=== PATIENT | female | born 1995 | race Caucasian/White ===

== ENCOUNTER 2019-05-03 12:44 | Inpatient (IN) | payer OTHER ==
[~2019-05-03] VITALS: Ht 162.6 cm; Wt 78.2 kg
[2019-05-13 21:09] VITALS: BP 117/75
[2019-05-13] MEDS ORDERED: OXYTOCIN 30U/ 0.9% NaCL 500ML 500 ML IV PRN (21:26)
[2019-05-13] MEDS ORDERED: OXYTOCIN 30U/ 0.9% NaCL 500ML 500 ML IV ONE (21:26)
[2019-05-13] MEDS ORDERED: ALUMINUM/MAG/SIMETHICONE 30 ML UDC PO PRN (21:30)
[2019-05-13] MEDS ORDERED: CALCIUM CARBONATE 500 MG TAB.CHEW PO PRN (21:30)
[2019-05-13] MEDS ORDERED: MISOPROSTOL 25 MCG TABLET VG PRN (21:30)
[2019-05-13] MEDS ORDERED: ONDANSETRON 2MG/ML, 2ML IVPush PRN (21:30)
[2019-05-13] MEDS ORDERED: TERBUTALINE 1 MG/ML, 1ML IVPush PRN (21:30)
[2019-05-13] MEDS ORDERED: SODIUM CITRATE/CITRIC ACID 15 ML UDC PO PRN (21:30)
[2019-05-13] MEDS ORDERED: METOCLOPRAMIDE 5 MG/ML, 2ML IVPush PRN (21:30)
[2019-05-13] MEDS ORDERED: FENTANYL PF 100 MCG/2ML IV PRN (21:30)
[2019-05-13] MEDS ORDERED: OXYTOCIN 30U/ 0.9% NaCL 500ML 500 ML ONE (21:45)
[2019-05-13] MEDS ORDERED: LIDOCAINE 1%, 20ML ONE (21:45)
[2019-05-13] MEDS ORDERED: MISOPROSTOL 200 MCG TABLET ONE (21:45)
[2019-05-13] MEDS ORDERED: NEWBORN KIT ONE (21:45)
[2019-05-13] MEDS ORDERED: MISOPROSTOL 25 MCG TABLET ONE ×2 (22:33→22:47)
[2019-05-13 22:50] LABS: BASOPHILS # (AUTO) 0.03 x10^3/uL (0-0.1); BASOPHILS % (AUTO) 0 % (0-1); EOSINOPHILS # (AUTO) 0.02 x10^3/uL (0-0.4); EOSINOPHILS % (AUTO) 0 % (1-7); LYMPHOCYTES % (AUTO) 25 % (22-44); MD MORPH REVIEW ONLY; MEAN CORPUSCULAR HEMOGLOBIN 26.9 pg (27.0-34.8); MEAN CORPUSCULAR HGB CONC 32.2 g/dL (32.4-35.8); MEAN CORPUSCULAR VOLUME 83.6 fL (80-100); MEAN PLATELET VOLUME 11.4 fL (7.4-10.4); MONOCYTES # (AUTO) 0.56 x10^3/uL (0.2-0.8); MONOCYTES % (AUTO) 7 % (2-9); NEUTROPHILS # (AUTO) 5.58 x10^3/uL (1.8-6.8); NEUTROPHILS % (AUTO) 68 % (42-75); PLATELET COUNT 199 x10^3/uL (130-400); RED BLOOD COUNT 4.28 x10^6/uL (3.82-5.3); RED CELL DISTRIBUTION WIDTH 17.1 % (9.6-15.2)
[2019-05-13 22:53] LABS: ANISOCYTOSIS 1+; OVALOCYTES 1+
[2019-05-13 22:54] LABS: <PLATELET ESTIMATE> ADEQUATE; GIANT PLATELETS 1+
[2019-05-13 22:55] LABS: LARGE PLATELETS 1+
[2019-05-14] MEDS: LACTATED RINGERS 1,000 ML IV SCH ×6 (05:10→23:48)
[2019-05-14] MEDS: D5%-LACTATED RINGERS 1,000 ML IV SCH ×4 (05:26→21:26)
[2019-05-14] MEDS ORDERED: FENTANYL PF 100 MCG/2ML ONE ×2 (06:18→08:54)
[2019-05-14] MEDS: FENTANYL PF 100 MCG/2ML IVPush PRN ×2 (06:21→09:02)
[2019-05-14] MEDS ORDERED: OXYTOCIN 30U/ 0.9% NaCL 500ML 500 ML IV PRN (06:37)
[2019-05-14 08:24] VITALS: BP 112/72
[2019-05-14] MEDS ORDERED: FENTANYL/BUPIV./NS/PF 250 ML EPIDCONT SCH ×2 (08:24→10:37)
[2019-05-14] MEDS ORDERED: FENTANYL PF 500 MCG, BUPIVACAINE/PF 0.5%, 30ML 62.5 ML in SODIUM CHLORIDE 0.9% 177.5 ML EPIDCONT SCH (08:30)
[2019-05-14] MEDS ORDERED: NALOXONE 0.4 MG/ML, 1ML IVPush PRN (11:00)
[2019-05-14] MEDS ORDERED: LACTATED RINGERS 1,000 ML IVBOLUS PRN (11:00)
[2019-05-14] MEDS ORDERED: EPHEDRINE 50 MG/ML, 1ML IVPush PRN (11:00)
[2019-05-14] MEDS ORDERED: NEWBORN KIT ONE (21:19)
[2019-05-14] MEDS ORDERED: OXYTOCIN 30U/ 0.9% NaCL 500ML 500 ML ONE (21:49)
[2019-05-14] MEDS ORDERED: ACETAMINOPHEN 500 MG TABLET ONE (21:49)
[2019-05-14] MEDS ORDERED: OXYTOCIN 30U/ 0.9% NaCL 500ML 500 ML IV SCH (21:54)
[2019-05-14] MEDS ORDERED: BISACODYL 10 MG SUPP PR PRN (22:00)
[2019-05-14] MEDS ORDERED: CALCIUM CARBONATE 500 MG TAB.CHEW PO PRN (22:00)
[2019-05-14] MEDS ORDERED: HYDROcodone/APAP 5/325 TABLET PO PRN (22:00)
[2019-05-14] MEDS ORDERED: ACETAMINOPHEN 500 MG TABLET PO PRN (22:00)
[2019-05-14] MEDS ORDERED: MISOPROSTOL 200 MCG TABLET PR PRN (22:00)
[2019-05-14] MEDS ORDERED: DOCUSATE 100 MG CAPSULE PO PRN (22:00)
[2019-05-14] MEDS ORDERED: ONDANSETRON 2MG/ML, 2ML IV PRN (22:00)
[2019-05-14] MEDS ORDERED: ACETAMINOPHEN 325 MG TABLET PO PRN ×2 (22:00)
[2019-05-14 23:10] VITALS: BP 103/68
[2019-05-14] MEDS: OXYTOCIN 30U/ 0.9% NaCL 500ML 500 ML IV SCH (23:49)
[2019-05-15] MEDS: OXYTOCIN 30U/ 0.9% NaCL 500ML 500 ML IV SCH ×4 (00:48→05:10)
[2019-05-15] MEDS: IBUPROFEN 600 MG TABLET PO PRN ×2 (01:49→08:54)
[2019-05-15] MEDS: HYDROcodone/APAP 5/325 TABLET PO PRN ×2 (02:57→12:06)
[2019-05-15 05:38] LABS: MEAN CORPUSCULAR HEMOGLOBIN 26.4 pg (27.0-34.8); MEAN CORPUSCULAR HGB CONC 32.3 g/dL (32.4-35.8); MEAN CORPUSCULAR VOLUME 81.7 fL (80-100); MEAN PLATELET VOLUME 11.2 fL (7.4-10.4); PLATELET COUNT 138 x10^3/uL (130-400); RED BLOOD COUNT 3.51 x10^6/uL (3.82-5.3)
[2019-05-15 05:49] VITALS: BP 100/63
[2019-05-15 06:01] LABS: BASOPHILS # (AUTO) 0.02 x10^3/uL (0-0.1); BASOPHILS % (AUTO) 0 % (0-1); EOSINOPHILS % (AUTO) 0 % (1-7); LYMPHOCYTES # (AUTO) 1.33 x10^3/uL (1-3.4); LYMPHOCYTES % (AUTO) 7 % (22-44); MD SCAN; MONOCYTES % (AUTO) 6 % (2-9); NEUTROPHILS # (AUTO) 15.85 x10^3/uL (1.8-6.8); NEUTROPHILS % (AUTO) 87 % (42-75)
[2019-05-15 07:40] VITALS: BP 100/59
[2019-05-15] MEDS ORDERED: PRENATAL VIT/IRON/FA 1 EACH TABLET PO SCH (09:00)
[2019-05-15] MEDS ORDERED: FENTANYL/BUPIV./NS/PF 250 ML EPIDCONT ONE (10:05)
[2019-05-15] MEDS ORDERED: LIDOCAINE 1%, 20ML ONE (10:05)
[2019-05-15] MEDS ORDERED: LIDOCAINE/PF 1.5%-EPI 1:200K, 30ML ONE (10:05)
[2019-05-15] MEDS ORDERED: IBUP-1222 PO (10:54)
[2019-05-15 11:58] VITALS: BP 106/73
[2019-05-15 16:00] VITALS: BP 102/68
[2019-05-15] MEDS ORDERED: MEASLES,MUMPS&RUBELLA VACC/PF 0.5 ML SQ-VACC ONE ×2 (19:00→19:07)
== END 2019-05-15 21:00 | disposition home or self-care (01) | DRG 806 ==
LOC: LDIP 05-13 21:01 → 2NW 05-14 22:57
PROVIDERS: ADMIT Obstetrics & Gynecology; ATTEND Obstetrics & Gynecology
PROC: 10E0XZZ Delivery of Products of Conception, External Approach (ICD-10-PCS; principal; 2019-05-14)
PROC: 0KQM0ZZ Repair Perineum Muscle, Open Approach (ICD-10-PCS; 2019-05-14)
PROC: 10907ZC Drainage of Amniotic Fluid, Therapeutic from Products of Conception, Via Natural or Artificial Opening (ICD-10-PCS; 2019-05-14)
PROC: 3E033VJ Introduction of Other Hormone into Peripheral Vein, Percutaneous Approach (ICD-10-PCS; 2019-05-14)
PROC: 3E0R3BZ Introduction of Anesthetic Agent into Spinal Canal, Percutaneous Approach (ICD-10-PCS; 2019-05-14)
PROC: 00HU33Z Insertion of Infusion Device into Spinal Canal, Percutaneous Approach (ICD-10-PCS; 2019-05-14)
DX: O76 Abnormality in fetal heart rate and rhythm complicating labor and delivery (principal); D62 Acute posthemorrhagic anemia; Z37.0 Single live birth; O48.0 Post-term pregnancy; O99.03 Anemia complicating the puerperium; O66.0 Obstructed labor due to shoulder dystocia; O70.1 Second degree perineal laceration during delivery; Z3A.40 40 weeks gestation of pregnancy
CPT/HCPCS: 36415; J3490; J7121; 82803; 85025; 86850; 86900; G0378; J3010; J2590; J7120